=== PATIENT | female | born 1975 | race Caucasian/White ===

== ENCOUNTER 2016-12-12 12:24 | Emergency (ER) | payer MEDICAID ==
[2016-12-12 12:37] VITALS: RESP 18
[2016-12-12 12:43] LABS: % IMMATURE GRANULYOCYTES 0.2 % (0.0-1.1); ABSOLUTE IMMATURE GRANULOCYTES 0.01 10^3/uL (0.00-0.10); ADD DIFF? NO; ADD MORPH? NO; ADD SCAN? NO; ATYPICAL LYMPHOCYTE FLAG 0 (0-99); FRAGMENT RBC FLAG 0 (0-99); HEMATOCRIT 39.4 % (38.0-47.0); LEFT SHIFT FLG 0 (0-99); LIPEMIA HEMOLYSIS FLAG 80 (0-99); MEAN CELL HEMOGLOBIN 30.5 pg (27.9-34.1); MEAN CELL VOLUME 92.5 fL (81.5-99.8); MEAN PLATELET VOLUME 11.7 fL (8.7-11.7); PLATELET CLUMPS FLAG 0 (0-99); PLATELET COUNT 216 10^3/uL (150-400); RED BLOOD CELL COUNT 4.26 10^6/uL (4.18-5.33); RED CELL DISTRIBUTION WIDTH 12.4 % (11.5-15.2)
[2016-12-12 12:57] LABS: ALANINE AMINOTRANSFERASE 31 IU/L (9-52); ALBUMIN 4.3 g/dL (3.5-5.0); ALKALINE PHOSPHATASE 101 IU/L (38-126); ANION GAP 11 mEq/L (8-16); ASPARTATE AMINOTRANSFERASE 22 IU/L (14-46); BILIRUBIN,TOTAL 0.9 mg/dL (0.1-1.4); CALCIUM 10.3 mg/dL (8.5-10.4); CARBON DIOXIDE 24 mEq/l (22-31); CHLORIDE 105 mEq/L (97-110); CREATININE 0.9 mg/dL (0.6-1.0); GLOMERULAR FILTRATION RATE > 60; GLUCOSE 80 mg/dL (70-100); POTASSIUM 4.3 mEq/L (3.5-5.2); SODIUM 140 mEq/L (134-144); TOTAL PROTEIN 6.9 g/dL (6.3-8.2)
--- NOTE | 2016-12-12 13:13 | EDPHY ---
H & P Stated Complaint: abd pain x 3 hours - Personal History Current Tetanus Diphtheria and Acellular Pertussis (TDAP): Yes - Medical/Surgical History Hx Asthma: No Hx Chronic Respiratory Disease: No Hx Diabetes: No Hx Cardiac Disease: No Hx Renal Disease: No Hx Cirrhosis: No Hx Alcoholism: No Hx HIV/AIDS: No Hx Splenectomy or Spleen Trauma: No Other PMH: ulcers, gastric bypass with pouch rupture, PE, Bronchiolitis obliterans organizing pneumonia (BOOP) and Desquamative interstitial pneumonia ( DIP) - Social History Smoking Status: Former smoker Time Seen by Provider: 12/12/16 12:26 HPI/ROS: CHIEF COMPLAINT: Epigastric Abdominal pain HISTORY OF PRESENT ILLNESS: 41-year-old female history of gastric bypass surgery December 2015 with rupture of her pouch in June 2015 with surgical revision at that time arrives via ambulance complaining of 3 hours of epigastric discomfort which feels similar to her prior ruptured pouch. She contacted her surgeon in [place] and he recommend she come to the ER for evaluation. No antecedent symptoms. No radiation of pain. No chest pain. No dyspnea. No back pain. No urinary abnormality. No fever no chills. No trauma. Gastric bypass surgeons Dr. Yusuf Gimenez and Dr. Daquan Sher in [facility] REVIEW OF SYSTEMS: A ten point review of systems was performed and is negative with the exception of the items mentioned in the HPI PAST MEDICAL & SURGICAL HISTORY: Cholecystectomy. Gastric bypass with revision in June 2015 SOCIAL HISTORY: nonsmoker PHYSICAL EXAM (Prior to examination, patient consented to physical exam, hands were washed and my usual and customary physical exam procedures followed) 1) GENERAL: Well-developed, well-nourished, alert and oriented. Appears uncomfortable 2) HEAD: Normocephalic, atraumatic 3) HEENT: Pupils equal, round, reactive to light bilaterally. Sclera anicteric. 4) NECK: Full range of motion, no meningeal signs. 5) LUNGS: Clear auscultation bilaterally, no wheezes, no rhonchi, no retractions. 6) HEART: Regular rate and rhythm, no murmur, no heave, no gallop. 7) ABDOMEN: Guarding epigastrium tender to palpation epigastrium., 8) MUSCULOSKELETAL: Moving all extremities, no focal areas of tenderness, no obvious trauma. No peripheral edema or discoloration. 9) BACK: No CVA tenderness, no midline vertebral tenderness, no fluctuance, no step-off, no obvious trauma, no visual or palpable abnormality. 10) SKIN: No rash, no petechiae. 11) Psychiatric: Patient is oriented X 3, there is no agitation. DIFFERENTIAL DIAGNOSIS: in no particular include but limited to acute pancreatitis, gastric bypass pouch perforation, acute appendicitis (Angela Green) Constitutional: Initial Vital Signs Temperature (C) 36.9 C 12/12/16 12:32 Heart Rate 75 12/12/16 12:32 Respiratory Rate 18 12/12/16 12:32 Blood Pressure 122/71 H 12/12/16 12:32 O2 Sat (%) 96 12/12/16 12:32 O2 Delivery Mode Room Air Allergies/Adverse Reactions: No Known Allergies Allergy (Unverified 12/12/16 12:31) Home Medications: Medication Instructions Recorded Abipaty 12/12/16 Docusate Sodium [Colace] 100 mg PO BID #6 cap 12/12/16 Protonix 12/12/16 Seroquel 12/12/16 Medical Decision Making - Diagnostics Imaging: Discussed imaging studies w/ waterworks supervisor Radiologist ED Course/Re-evaluation: I did not see this patient while she was in the emergency department. However her care was discussed with the PA while the patient was in the emergency department. I agree with treatment plan and management (Jefferson Sánchez) 12:30 p.m. plan will be diagnostic studies including CT imaging as patient has history of ruptured pouch. 2:45 p.m.: Re-evaluation, given IV Toradol, she is resting comfortably. Discussed imaging studies showing no evidence of peritoneal perforation. 3:41 p.m.: Re-evaluation, sleeping, easily woken, appears comfortable, tolerate oral intake. Re-examined her abdomen which is soft no guarding or rebound epigastric pain. She would like to be discharged. She has been given usual and customary discharge precautions instructions. When she contact her gastric bypass surgeon on Wednesday (today is Wednesday). In the meantime should she develop new or worsening symptoms to return to ER immediately for re- evaluation. All questions and concerns have been addressed by myself (Angela Green) - Data Points Laboratory Results: Laboratory Results 12/12/16 12:30 12/12/16 12:30 Medications Given: Discontinued Medications Ketorolac Tromethamine (Toradol) 15 mg IVP EDNOW ONE Stop: 12/12/16 14:30 Last Admin: 12/12/16 15:11 Dose: 15 mg Departure - Departure Disposition: Home, Routine, Self-Care Clinical Impression: Abdominal pain, Constipation Condition: Good Instructions: Constipation (ED) Additional Instructions: Seek immediate medical attention if you develop new or worsening symptoms, if you develop fevers, chills, inability to tolerate oral intake or any other symptoms that concerns you. Follow-up with your primary care provider or general surgeon on Wednesday. Referrals: OLGA MIRANDA [Other] - As per Instructions Prescriptions: Docusate Sodium [Colace] 100 mg PO BID #6 cap
[2016-12-12] MEDS ORDERED: IOPAMIDOL (ISOVUE-300) 100 ML BTL ONE (13:36)
[2016-12-12] MEDS ORDERED: KETOROLAC 15 MG/1 ML SDV IVP ONE (14:29)
[2016-12-12 15:35] LABS: COLOR PALE YELLOW; LEUKOCYTE ESTERASE,URINE NEGATIVE (NEGATIVE); NITRITE,URINE NEGATIVE (NEGATIVE)
[2016-12-12 15:36] LABS: MUCUS TRACE /lpf (NONE-1+)
[2016-12-12 16:08] VITALS: BP 114/80; PULSE 67; TEMP 97.9; O2SAT 98
== END 2016-12-12 16:08 | disposition home or self-care (01) ==
DX: K59.00 Constipation, unspecified (principal); Z87.891 Personal history of nicotine dependence; Z90.49 Acquired absence of other specified parts of digestive tract
CPT/HCPCS: 96374; J1885; Q9967